=== PATIENT | female | born 1970 | race Caucasian/White ===

== ENCOUNTER 2017-07-07 02:41 | Emergency (ER) | payer OTHER ==
[2017-07-07] MEDS ORDERED: DEXAMETHASONE 10 MG/ML VIAL PO ONE (03:03)
[2017-07-07] MEDS ORDERED: diphenhydrAMINE 25 MG CAP PO ONE (03:03)
--- NOTE | 2017-07-07 03:09 | EDPHY ---
H & P Stated Complaint: sore throat, tightness Time Seen by Provider: 07/07/17 02:47 HPI/ROS: HPI The patient presents with sore throat with a tight sensation in her throat. Two days ago she was walking along [place] when she had an intense coughing fit lasting for several minutes. Then later in the night, she developed slow onset of sore throat which has been constant and became worse tonight. The sore throat is localized, not improved with salt water gargles. She has a sense of fullness in the back of her throat. She has been taking ibuprofen without much improvement since her symptoms started. She is able to swallow liquids without difficulty though it is painful. She had trouble sleeping tonight because of the sense of fullness so comes into the emergency department. She has no prior history of similar. She denies any shortness of breath, rash, wheezing. She does not have a fever, ongoing cough, rhinorrhea. 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 REVIEW OF SYSTEMS Constitutional: No fever, no chills. Eyes: No discharge. ENT: Positive for sore throat. Cardiovascular: No chest pain, no palpitations. Respiratory: No cough, no shortness of breath. Gastrointestinal: No abdominal pain, no vomiting. Genitourinary: No hematuria. Musculoskeletal: No back pain. Skin: No rashes. Neurological: No headache. PMHx: Healthy Soc Hx: Housed with her family PHYSICAL General Appearance: Alert, no distress Eyes: Pupils equal and round no pallor or injection ENT, Mouth: Mucous membranes moist, uvula is midline and edematous, posterior pharynx is slightly edematous and erythematous, soft palate with petechiae Respiratory: There are no retractions, lungs are clear to auscultation Cardiovascular: Regular rate and rhythm Gastrointestinal: Abdomen is soft and non-tender, no masses, bowel sounds normal Neurological: A&O, moves all extremities Skin: Warm and dry, no rashes Musculoskeletal: Neck is supple non tender Extremities: symmetrical, full range of motion Psychiatric: Patient is oriented X 3, there is no agitation Source: Patient Exam Limitations: No limitations - Personal History LMP (Females 10-55): Irregular Current Tetanus Diphtheria and Acellular Pertussis (TDAP): Yes - Medical/Surgical History Hx Asthma: No Hx Chronic Respiratory Disease: No Hx Diabetes: No Hx Cardiac Disease: No Hx Renal Disease: No Hx Cirrhosis: No Hx HIV/AIDS: No Hx Splenectomy or Spleen Trauma: No Other PMH: migrianes - Social History Smoking Status: Never smoked Constitutional: Initial Vital Signs Temperature (C) 36.9 C 07/07/17 02:44 Heart Rate 82 07/07/17 02:44 Respiratory Rate 20 07/07/17 02:44 Blood Pressure 145/85 H 07/07/17 02:44 O2 Sat (%) 95 07/07/17 02:44 O2 Delivery Mode Room Air Allergies/Adverse Reactions: No Known Allergies Allergy (Unverified 07/07/17 02:44) Home Medications: Medication Instructions Recorded Cymbalta 07/07/17 Dexamethasone [Decadron 4 MG (*)] 4 mg PO Q6H 2 Days tab 07/07/17 Medical Decision Making Differential Diagnosis: This is a 46-year-old healthy female who presents from home with 2 days of sore throat and sense of fullness with in her throat. On exam, she has normal vital signs. Her posterior pharynx is edematous with uvular edema present and petechiae of her soft palate. Given her recent coughing fit, I suspect she may have a traumatic uvulitis. I also consider infectious cause such as strep pharyngitis. As this could also be allergic reaction or angioedema, though no new medications or history of such. She started taking ibuprofen after the symptoms developed, so I doubt this is an allergy to NSAIDs. Epiglottitis is a consideration, however, she does not have any difficulty tolerating her secretions, does not have a fever. I plan to treat her here with Decadron and Benadryl. Rapid strep was performed and was negative. I have advised her to follow up with ENT in the morning and she is happy to do this. At about 7:00 a.m., I consulted with the ENT preparation plant repairer Dr. Lazaro and we discussed the case. The patient has left the emergency department but I have provided him with the patient's information to ensure or outpatient follow-up today. He is in agreement with plan for follow-up. - Data Points Laboratory Results: 07/07/17 07/07/17 Unknown 03:16 Group A Strep Screen NEGATIVE (NEGATIVE) Group A Strep DNA Pending Medications Given: Discontinued Medications Dexamethasone (Decadron Injection) 10 mg PO EDNOW ONE Stop: 07/07/17 03:04 Last Admin: 07/07/17 03:09 Dose: 10 mg Diphenhydramine HCl (Benadryl) 25 mg PO EDNOW ONE Stop: 07/07/17 03:04 Last Admin: 07/07/17 03:08 Dose: 25 mg Departure - Departure Disposition: Home, Routine, Self-Care Clinical Impression: Uvular edema Condition: Good Instructions: Uvulitis (ED) Additional Instructions: Please take the prescription provided, 1st dose should be sometime Thursday. I recommend you take Benadryl 25 mg every 6 hr with this. You should continue to take the ibuprofen as well. Please return to the emergency department if your worse in any way. Otherwise I would like for you to follow up with Dr. Laz[facility] in the morning. Referrals: Gutierrez Lazaro MD [Medical Doctor] - As per Instructions Prescriptions: Dexamethasone [Decadron 4 MG (*)] 4 mg PO Q6H 2 Days tab
[2017-07-07 04:19] VITALS: BP 136/70
[2017-07-07 11:52] LABS: GROUP A STREP DNA (THROAT) POSITIVE (NEGATIVE)
== END 2017-07-07 04:18 | disposition home or self-care (01) ==
DX: K13.29 Other disturbances of oral epithelium, including tongue (principal)
CPT/HCPCS: J1100